=== PATIENT | male | born 1965 | race Caucasian/White ===

== ENCOUNTER 2016-10-28 17:55 | Emergency (ER) | payer OTHER ==
[~2016-10-28] VITALS: Ht 165.1 cm; Wt 97.5 kg
[2016-10-28 20:24] VITALS: BP 115/71
== END 2016-10-28 20:24 | disposition home or self-care (01) ==
LOC: ED 17:55
DX: M62.830 Muscle spasm of back (principal); M54.5 Low back pain
CPT/HCPCS: 20552; J2001

== ENCOUNTER 2016-11-09 06:03 | Emergency (ER) | payer OTHER ==
[~2016-11-09] VITALS: Ht 165.1 cm; Wt 92.6 kg
[2016-11-09 08:20] VITALS: BP 119/88
== END 2016-11-09 08:20 | disposition home or self-care (01) ==
LOC: ED 06:03
DX: M54.5 Low back pain (principal)
CPT/HCPCS: J1885

== ENCOUNTER 2017-11-19 06:45 | Emergency (ER) | payer OTHER ==
[~2017-11-19] VITALS: Ht 165.1 cm; Wt 86.6 kg
[~2017-11-19 06:45] MED LIST: CULTURELLE DIGE1 CAP PO; FLA500 PO; LEVAQUIN750 MG PO
[2017-11-19 06:49] VITALS: Ht 165.1 cm; Wt 86.6 kg
[2017-11-19 07:21] LABS: BASOPHIL % 0.2 % (0-2); PLATELET COUNT 313 x10^3mcL (130-400); RED CELL DISTRIBUTION WIDTH 13.1 % (11.5-14.5)
[2017-11-19 07:36] LABS: CALCIUM 8.4 mg/dL (8.5-10.1); CARBON DIOXIDE 26.8 mmol/L (21-32); CHLORIDE SERUM 101 mmol/L (98-107); CREATININE SERUM 0.9 mg/dL (0.7-1.3); GFR1 > 60 mL/min; GLUCOSE SERUM 150 mg/dL (74-106); POTASSIUM SERUM 4.2 mmol/L (3.5-5.1); SODIUM SERUM 135 mmol/L (136-145)
[2017-11-19 07:40] LABS: ALBUMIN 3.4 g/dL (3.4-5.0); ALKALINE PHOSPHATASE 47 U/L (46-116); ALT/SGPT 39 U/L (16-63); AST/SGOT 16 U/L (15-37); BILIRUBIN TOTAL 0.3 mg/dL (0.20-1.00); CHOLESTEROL 108 mg/dL (<200); CHOLESTEROL/HDL RATIO 4.2; HDL CHOLESTEROL 26 mg/dL (40-60); LIPASE 131 IU/L (73-393); TOTAL PROTEIN, SERUM 7.2 g/dL (6.4-8.2); TRIGLYCERIDES 155 mg/dL (<150)
[2017-11-19 07:51] LABS: FREE T4 1.02 ng/dL (0.76-1.46); FREE THYROXINE INDEX 2.8 ug/dL (1.4-4.5); T4(THYROXINE) 8.1 ug/dL (4.7-13.3)
[2017-11-19 08:04] LABS: T3 TOTAL 1.28 ng/mL
[2017-11-19 09:00] VITALS: BP 125/68
== END 2017-11-19 09:00 | disposition home or self-care (01) ==
LOC: ED 06:45
PROVIDERS: Specialist
DX: R10.13 Epigastric pain (principal); Z88.2 Allergy status to sulfonamides
CPT/HCPCS: 83880; 84439; J1885; J2405; J3490; J7030; Q0092

== ENCOUNTER 2018-03-13 19:44 | Inpatient (IN) | payer OTHER ==
[~2018-03-13] VITALS: Ht 165.1 cm; Wt 78.5 kg
[2018-03-13 19:50] VITALS: Ht 165.1 cm; Wt 78.5 kg
[2018-03-13 21:21] LABS: BASOPHIL % 0.3 % (0-2); PLATELET COUNT 312 x10^3mcL (130-400); RED CELL DISTRIBUTION WIDTH 13.9 % (11.5-14.5)
[2018-03-13 21:30] LABS: CALCIUM 8.7 mg/dL (8.5-10.1); CARBON DIOXIDE 26.7 mmol/L (21-32); CHLORIDE SERUM 105 mmol/L (98-107); CREATININE SERUM 0.8 mg/dL (0.7-1.3); GFR1 > 60 mL/min; GLUCOSE SERUM 136 mg/dL (74-106); POTASSIUM SERUM 4.3 mmol/L (3.5-5.1); SODIUM SERUM 140 mmol/L (136-145)
[2018-03-13 21:34] LABS: ALBUMIN 3.3 g/dL (3.4-5.0); ALKALINE PHOSPHATASE 100 U/L (46-116); ALT/SGPT 254 U/L (16-63); AST/SGOT 234 U/L (15-37); BILIRUBIN TOTAL 2.22 mg/dL (0.20-1.00); LIPASE 204 IU/L (73-393)
[2018-03-13 22:55] LABS: UA SPECIFIC GRAVITY >=1.030 (1.005-1.035); microscopic required? YES; urine erythrocyte 1+ (NEGATIVE)
[2018-03-14 01:01] VITALS: BP 128/71
[2018-03-14 05:53] VITALS: BP 104/66
[2018-03-14 08:11] LABS: BASOPHIL % 0.2 % (0-2); PLATELET COUNT 257 x10^3mcL (130-400)
[2018-03-14 08:13] LABS: RED CELL DISTRIBUTION WIDTH 14.9 % (11.5-14.5)
[2018-03-14 09:45] VITALS: BP 105/67
[2018-03-14 11:32] LABS: ALKALINE PHOSPHATASE 103 U/L (46-116); ALT/SGPT 295 U/L (16-63); AST/SGOT 176 U/L (15-37); BILIRUBIN DIRECT 1.12 mg/dL (0.0-0.2); BILIRUBIN TOTAL 2.24 mg/dL (0.20-1.00); CARBON DIOXIDE 29.1 mmol/L (21-32); CHLORIDE SERUM 106 mmol/L (98-107); CREATININE SERUM 0.7 mg/dL (0.7-1.3); GFR1 > 60 mL/min; GLUCOSE SERUM 93 mg/dL (74-106); POTASSIUM SERUM 3.8 mmol/L (3.5-5.1); SODIUM SERUM 141 mmol/L (136-145)
[2018-03-14 11:33] LABS: ALBUMIN 2.8 g/dL (3.4-5.0)
[2018-03-14 17:31] VITALS: BP 110/68
[2018-03-14 21:33] VITALS: BP 140/87
[2018-03-15 05:00] VITALS: BP 105/60
[2018-03-15 05:56] LABS: BASOPHIL % 0.1 % (0-2); PLATELET COUNT 286 x10^3mcL (130-400)
[2018-03-15 06:00] LABS: RED CELL DISTRIBUTION WIDTH 14.8 % (11.5-14.5)
[2018-03-15 06:12] LABS: ALKALINE PHOSPHATASE 143 U/L (46-116); ALT/SGPT 284 U/L (16-63); AST/SGOT 99 U/L (15-37); BILIRUBIN TOTAL 2.17 mg/dL (0.20-1.00); CALCIUM 7.6 mg/dL (8.5-10.1); CHLORIDE SERUM 103 mmol/L (98-107); CREATININE SERUM 0.8 mg/dL (0.7-1.3); GFR1 > 60 mL/min; GLUCOSE SERUM 125 mg/dL (74-106); POTASSIUM SERUM 4.2 mmol/L (3.5-5.1); SODIUM SERUM 138 mmol/L (136-145); TOTAL PROTEIN, SERUM 6.3 g/dL (6.4-8.2)
[2018-03-15 06:13] LABS: ALBUMIN 2.8 g/dL (3.4-5.0)
[2018-03-15 09:35] VITALS: BP 98/51
[2018-03-15 17:09] VITALS: BP 133/78
[2018-03-15 20:42] VITALS: BP 124/70
[2018-03-16 05:31] VITALS: BP 112/68
[2018-03-16 07:41] LABS: ALKALINE PHOSPHATASE 147 U/L (46-116); ALT/SGPT 209 U/L (16-63); AST/SGOT 54 U/L (15-37); BILIRUBIN TOTAL 1.95 mg/dL (0.20-1.00); CARBON DIOXIDE 28.3 mmol/L (21-32); CHLORIDE SERUM 103 mmol/L (98-107); CREATININE SERUM 0.7 mg/dL (0.7-1.3); GFR1 > 60 mL/min; GLUCOSE SERUM 81 mg/dL (74-106); POTASSIUM SERUM 3.9 mmol/L (3.5-5.1); SODIUM SERUM 138 mmol/L (136-145); TOTAL PROTEIN, SERUM 6.5 g/dL (6.4-8.2)
[2018-03-16 07:43] LABS: ALBUMIN 2.7 g/dL (3.4-5.0)
[2018-03-16 07:44] LABS: BASOPHIL % 0.2 % (0-2); PLATELET COUNT 276 x10^3mcL (130-400)
[2018-03-16 07:53] LABS: RED CELL DISTRIBUTION WIDTH 14.7 % (11.5-14.5)
[2018-03-16 08:37] VITALS: BP 109/68
[2018-03-16 13:09] VITALS: BP 128/75
[2018-03-16 17:51] VITALS: BP 115/76
[2018-03-16 20:58] VITALS: BP 116/73
[2018-03-17 06:09] VITALS: BP 125/70
[2018-03-17 07:31] LABS: BASOPHIL % 0.2 % (0-2); PLATELET COUNT 281 x10^3mcL (130-400); RED CELL DISTRIBUTION WIDTH 14.3 % (11.5-14.5)
[2018-03-17 07:55] LABS: ALKALINE PHOSPHATASE 119 U/L (46-116); ALT/SGPT 136 U/L (16-63); AST/SGOT 23 U/L (15-37); BILIRUBIN TOTAL 1.7 mg/dL (0.20-1.00); CALCIUM 8.1 mg/dL (8.5-10.1); CHLORIDE SERUM 102 mmol/L (98-107); CREATININE SERUM 0.7 mg/dL (0.7-1.3); GFR1 > 60 mL/min; GLUCOSE SERUM 96 mg/dL (74-106); POTASSIUM SERUM 3.5 mmol/L (3.5-5.1); SODIUM SERUM 137 mmol/L (136-145); TOTAL PROTEIN, SERUM 6.7 g/dL (6.4-8.2)
[2018-03-17 07:56] LABS: ALBUMIN 2.6 g/dL (3.4-5.0)
[2018-03-17 12:22] VITALS: BP 125/70
== END 2018-03-17 14:20 | disposition home or self-care (01) | DRG 418 ==
LOC: ED 19:44 → MU 03-14 00:27
PROVIDERS: Emergency Medicine; Internal Medicine Gastroenterology; Internal Medicine Pulmonary Disease; Surgery
PROC: 0FT44ZZ Resection of Gallbladder, Percutaneous Endoscopic Approach (ICD-10-PCS; principal; 2018-03-14 16:30)
PROC: BF10YZZ Fluoroscopy of Bile Ducts using Other Contrast (ICD-10-PCS; 2018-03-16 11:00)
DX: K80.43 Calculus of bile duct with acute cholecystitis with obstruction (principal); E44.0 Moderate protein-calorie malnutrition; E80.6 Other disorders of bilirubin metabolism; F10.10 Alcohol abuse, uncomplicated; E66.9 Obesity, unspecified; R74.0 Nonspecific elevation of levels of transaminase and lactic acid dehydrogenase [LDH]; Z68.30 Body mass index [BMI] 30.0-30.9, adult; Z87.891 Personal history of nicotine dependence
CPT/HCPCS: 43262; 78226; 94150; A9537; C1758; C1769; J0295; J0330; J1170; J1610; J2250; J2270; J2405; J2543; J2704; J2710; J3010; J3490; J7030; J7120; Q0092; Q0162; Q9967

== ENCOUNTER 2018-03-22 | Emergency (ER) | payer OTHER ==
[~2018-03-22] VITALS: Ht 157.5 cm; Wt 82.6 kg
[2018-03-22 00:03] VITALS: Ht 157.5 cm; Wt 82.6 kg
[2018-03-22 02:46] VITALS: BP 128/66
== END 2018-03-22 02:46 | disposition home or self-care (01) ==
LOC: ED
DX: R10.31 Right lower quadrant pain (principal); R11.0 Nausea; Z88.2 Allergy status to sulfonamides
CPT/HCPCS: J0500; Q0162